=== PATIENT | male | born 1975 | race Caucasian/White ===

== ENCOUNTER → 2021-01-03 11:31 | Outpatient (CLI) | payer OTHER, SELFPAY ==
[2021-01-03 20:24] LABS: SARS-CoV-2 RNA PCR Positive
== END ==
PROVIDERS: PCP Physician Assistant Medical; Visit Provider Physician Assistant Medical
DX: U07.1 COVID-19 (principal)
CPT/HCPCS: C9803; U0003; U0005

== ENCOUNTER 2021-01-10 18:08 | Emergency (ER) | payer OTHER, SELFPAY ==
--- NOTE | 2021-01-10 18:27 | ECG_ITS ---
Measurements Intervals [place] Rate: 74 P: 19 PA: 137 QRS: 24 QRSD: 98 T: 9 QT: 326 QTc: 364 Interpretive Statements SINUS RHYTHM DELAYED PRECORDIAL R/S TRANSITION CONSIDER INFERIOR INFARCT, AGE INDETERMINATE BORDERLINE T WAVE ABNORMALITY- ANTERIOR LEADS ABNORMAL ECG Electronically Signed On 01-10-2021 18:37:07 CDT by Tarik Mcclain D.O.
[2021-01-10 18:35] VITALS: BP 100/68; PULSE 74; RESP 16; TEMP 36.1; O2SAT 96
[2021-01-10 18:51] LABS: Basophils Percent Auto 0.2 % (0.2-1.2); Hematocrit 45.4 % (42.0-52.0); Hemoglobin 15.6 g/dL (14.0-18.0); Immature Granulocyte Absolute 0.01 K/mm3 (0.00-0.031); Immature Granulocyte Percent A 0.2 % (0-0.5); Lymphocytes Percent Auto 16.1 % (18.3-44.2); Mean Corpuscular HGB Conc 34.4 g/dl (32-36); Mean Corpuscular Hemoglobin 30.3 pg (26-34); Mean Corpuscular Volume 88.2 fl (80-100); Mean Platelet Volume 9.5 fl (7.4-10.4); Monocytes Absolute Auto 0.2 K/mm3 (0.1-0.6); Monocytes Percent Auto 4.6 % (2.6-8.5); Neutrophils Absolute Auto 3.4 K/mm3 (1.3-6.7); Neutrophils Percent Auto 78.9 % (45.5-73.1); Platelet Count Result 142 k/mm3 (150-375); Red Blood Count 5.15 M/mm3 (4.6-6.20); Red Cell Distribution Width 12.3 % (11.5-14.5); White Blood Count 4.4 K/mm3 (4.5-10.0)
[2021-01-10 19:04] LABS: Alanine Aminotransferase 34 U/L (4-50); Albumin Level 3.9 g/dL (3.5-5.1); Alkaline Phosphatase 88 U/L (38-126); Anion Gap 6 mmol/L (8-16); Aspartate Amino Transferase 37 U/L (17-59); Bilirubin,Total 0.8 mg/dL (0.2-1.3); Blood Urea Nitrogen 14 mg/dL (9-20); Calcium 8.3 mg/dL (8.4-10.2); Carbon Dioxide 33 mmol/L (22-30); Chloride 99 mmol/L (98-107); Estimated CRCL calculation 122 ml/min; Estimated Glomerular Filt Rate > 60; Glucose 134 mg/dL (75-110); Potassium 4.2 mmol/L (3.4-5.0); Sodium 138 mmol/L (137-145)
[2021-01-10 19:10] LABS: D Dimer 0.64 ug/mL (<0.48)
--- NOTE | 2021-01-10 21:29 | PC.NURSE ---
Pt to the desk stating he has been waiting 3.5 hours and just wants to go home. Pt left the department.
== END 2021-01-10 21:29 | disposition left against medical advice (07) ==
LOC: ANHED 01-26 13:42
PROVIDERS: Emergency Provider Family Medicine; PCP Family Medicine
DX: R06.02 Shortness of breath (principal)
CPT/HCPCS: 36415; 80053; 85025; 85380; 93005; 99199

== ENCOUNTER 2021-01-12 11:23 | Inpatient (IN) | payer OTHER, SELFPAY ==
[2021-01-12] VITALS (40 sets, daily range): BP systolic 101–135; BP diastolic 52–86; PULSE 63–90; RESP 18–35; TEMP 36–37.4; O2SAT 89–96; BMI 34.4
--- NOTE | ~2021-01-12 | CT_ITS ---
EXAMINATION: CTA chest PE protocol DATE: 01/12/2021 13:56 CDT INDICATION: Chest pain and shortness of breath TECHNIQUE: Computed tomographic angiography (CTA) of the chest was performed with 100 mL Omnipaque-35 0 intravenous contrast. The dose-length product was 926.89 mGy-cm. Maximum intensity projection 3D-re constructions of the aorta and other arteries were constructed by the technologist on a separate work station. Automated exposure control and iterative reconstruction technique were employed. COMPARISON: None. FINDINGS: Evaluation of peripheral pulmonary arteries limited by motion artifact and contrast bolus t iming. No central pulmonary embolism. Cardiomegaly. No significant pleural or pericardial effusion. N o evidence for aortic aneurysm or dissection. There is mediastinal lipomatosis. There are calcified m ediastinal and right hilar lymph nodes, consistent with chronic granulomatous disease. There is patch y bilateral airspace disease, compatible with pneumonia. IMPRESSION: 1. Extensive patchy bilateral airspace consolidation, consistent with pneumonia. 2: No large central pulmonary embolism. Evaluation of peripheral pulmonary arteries limited. Reviewed, dictated and finalized at location B. IMPRESSION: 1. Extensive patchy bilateral airspace consolidation, consistent with pneumonia . 2: No large central pulmonary embolism. Evaluation of peripheral pulmonary art eries limited.
[2021-01-12 12:47] LABS: Hematocrit 43.1 % (42.0-52.0); Immature Granulocyte Absolute 0.01 K/mm3 (0.00-0.031); Immature Granulocyte Percent A 0.2 % (0-0.5); Immature Platelet Fraction Pct 3.5 % (0.9-11.2); Lymphocytes Percent Auto 9.5 % (18.3-44.2); Mean Corpuscular HGB Conc 34.8 g/dl (32-36); Mean Corpuscular Hemoglobin 30.5 pg (26-34); Mean Corpuscular Volume 87.8 fl (80-100); Mean Platelet Volume 10.4 fl (7.4-10.4); Monocytes Absolute Auto 0.2 K/mm3 (0.1-0.6); Neutrophils Absolute Auto 4.6 K/mm3 (1.3-6.7); Neutrophils Percent Auto 86.3 % (45.5-73.1); Platelet Count Result 165 k/mm3 (150-375); Red Blood Count 4.91 M/mm3 (4.6-6.20); Red Cell Distribution Width 12.3 % (11.5-14.5); White Blood Count 5.3 K/mm3 (4.5-10.0)
--- NOTE | 2021-01-12 12:58 | ED.SOB ---
HPI - SOB/Dyspnea General Chief Complaint: Shortness of Breath/Dyspnea Stated Complaint: can't breathe, lethargic Time Seen by Provider: 01/12/21 11:26 History of Present Illness HPI Narrative: Patient is a 45-year-old male who presents to the ER with shortness of breath. Patient was diagnosed with Covid on 01/03/2021. Reports he been feeling sick for several days before then. Reports 3 days ago he began having increased shortness of breath and some central chest discomfort as well. He came to the ER to be evaluated and had blood drawn while in triage and then sat in the waiting room. Due to long wait times patient left without being seen by a provider. Patient has had persistent shortness of breath at home and his oxygen levels have been dropping into the 80s while he wears a pulse oximeter. He has persistent fevers and chills and cough. He is found no alleviating factors for his symptoms of fatigue or shortness of breath. He has not been on any medications at home. Patient reports a fever of 101 ?F this morning. Related Data Allergies Allergy/AdvReac Type Severity Reaction Status Date / Time No Known Allergies Allergy Verified 01/12/21 11:32 Review of Systems Review of Systems: All systems reviewed & are unremarkable except as noted in HPI and below Constitutional: Constitutional: Reports chills, Reports fatigue, Reports fever(s) and Reports weakness ENT: Denies nasal congestion and Denies sore throat Cardiovascular: Cardiovascular: Reports chest pain, Denies rapid heart rate and Denies radiating jaw, neck or arm pain Respiratory: Respiratory: Reports cough, Reports dyspnea and Denies wheezing Gastrointestinal: Gastrointestinal: Denies abdominal pain, Denies nausea and Denies vomiting PMFSH Past Medical History Medical History (Updated 01/12/21 @ 16:23 by Nura Onofre MD) Current smoker Obstructive apnea Surgical History Surgical History (Updated 01/12/21 @ 12:59 by Nura Onofre MD) No pertinent past surgical history Family History Family History (System 08/26/20 @ 08:21 by Pao Beck) Grandparent Family history of coronary artery disease Social History Social History (System 08/26/20 @ 08:21 by Pao Beck) Smoking status: Former smoker Exam Narrative: Exam Narrative: GENERAL: ill-appearing, well-nourished, and in no acute distress. HEAD: Normocephalic, atraumatic. CHEST: Clear to auscultation. No respiratory distress. HEART: Regular rate and rhythm. Normal peripheral pulses. ABDOMEN: Soft, nontender, nondistended. EXTREMITIES: Normal range of motion. No edema. SKIN: Warm, dry, no rash. NEURO: Alert and oriented x3. PSYCH: Normal mood and affect. Course Course Emergency Course: Admit to hospitalist service for Covid pneumonia with hypoxia. Requiring supplemental oxygen at this time. Decadron ordered. Vital Signs Vital signs: Vital Signs Temperature 99.1 F 01/12/21 11:27 Pulse Rate 85 01/12/21 11:27 Respiratory Rate 24 H 01/12/21 11:27 Pulse Oximetry 89 L 01/12/21 11:27 Temperature 99.1 F 01/12/21 11:27 Pulse Rate 78 01/12/21 15:00 Respiratory Rate 27 H 01/12/21 15:00 Blood Pressure 132/84 01/12/21 13:16 Pulse Oximetry 96 01/12/21 11:27 MDM - SOB/Dyspnea Lab Data Result diagrams: 01/12/21 12:30 01/12/21 13:07 Labs: Lab Results 01/12/21 01/12/21 01/12/21 Range/Units 12:30 13:07 13:07 WBC 5.3 (4.5-10.0) K/mm3 RBC 4.91 (4.6-6.20) M/mm3 Hgb 15.0 (14.0-18.0) g/dL Hct 43.1 (42.0-52.0) % MCV 87.8 (80-100) fl MCH 30.5 (26-34) pg MCHC 34.8 (32-36) g/dl RDW 12.3 (11.5-14.5) % Plt Count 165 (150-375) k/mm3 MPV 10.4 (7.4-10.4) fl Immature Gran % (Auto) 0.2 (0-0.5) % Neut % (Auto) 86.3 H (45.5-73.1) % Lymph % (Auto) 9.5 L (18.3-44.2) % Swisher % (Auto) 4.0 (2.6-8.5) % Eos % (Auto) 0.0 (0-4.4) % Baso % (Auto)
[2021-01-12 13:28] LABS: INR 0.9; Prothrombin Time 12.9 Seconds (11.1-14.7)
[2021-01-12 13:30] LABS: Anion Gap 4 mmol/L (8-16); Blood Urea Nitrogen 11 mg/dL (9-20); Calcium 7.9 mg/dL (8.4-10.2); Carbon Dioxide 30 mmol/L (22-30); Chloride 101 mmol/L (98-107); Estimated CRCL calculation 136 ml/min; Estimated Glomerular Filt Rate > 60; Glucose 105 mg/dL (75-110); Potassium 4.3 mmol/L (3.4-5.0); Sodium 135 mmol/L (137-145)
[2021-01-12 13:31] LABS: D Dimer 0.82 ug/mL (<0.48)
[2021-01-12 13:37] LABS: Troponin I 0.014 ng/mL (0.000-0.034)
[2021-01-12 13:40] LABS: Erythrocyte Sedimentation Rate 27 mm/hr (0-20)
[2021-01-12] MEDS: DEXAMETHASONE SOD PHOS INJ 4 MG/ML VIAL 6 MG IV PUSH (15:00)
--- NOTE | 2021-01-12 17:18 | PC.NURSE ---
Patient's updated on plan of care.
--- NOTE | 2021-01-12 17:39 | ADMGEN ---
This patient, Daniele Warren, was admitted to [facility] Surg Room 331-01 @ 4765 . Patient/family oriented to hospital policies and general routines including ID bracelet, bed and alarms, visiting hours, pain management, procedures, bathroom and other care routines, personal items, smoking policy, room service/diet, and visiting hours. Information on how to activate the Rapid Response Team has been discussed. Patient/Family are encouraged to report perceived risks to care and to ask questions if they do not understand what they are told or what they should do.
--- NOTE | 2021-01-12 18:46 | PCRCNOTE ---
Pt states he does wear a CPAP at home, but he does not want to use our machine while here.
--- NOTE | 2021-01-12 19:18 | PM.IMHP ---
H&P: HPI History of Present Illness Date/Time: 01/12/21 19:18 this is a 45-year-old male patient who has a history of COVID 19 pneumonia. The patient was diagnosed with COVID-19 approximately 8 days ago. His tested positive 1st. The patient stated that his symptoms started about 2 days prior to that. Initially he started with a runny nose and a just got progressively worse. The patient has body aches and still continues to have a fever. The patient said it just progressively got worse. The patient was short of breath that worsened approximately 3 days ago. The patient was in the waiting room this past Sunday in the emergency room but left after 3 hours because he was not seen. The patient called his primary care doctor who instructed him to come back to the emergency room. Patient's oxygen levels could dropping into the 80s when checking his pulse ox at home with the pulse oximeter. The patient has been taking Motrin. He reported that his fever was 101 this morning. Patient was complaining of having some discomfort with deep inspiration. CTA was read as extensive patchy bilateral airspace consolidation consistent with pneumonia. No large central pulmonary embolism. Evaluation peripherally pulmonary arteries limited. The patient was started on IV Decadron. The patient is being admitted to inpatient services for 01/12/2021 date of service. Chief Complaint: Shortness of breath Review of Systems Review of Systems: Narrative: See HPI All systems reviewed & are unremarkable except as noted in HPI and below Constitutional: Constitutional: Reports as per HPI and Reports no additional constitutional complaints Eyes: Eyes: Reports as per HPI and Reports no additional eye complaints ENT: Reports system reviewed and no additional complaints, except as documented and Reports Normal hearing present Cardiovascular: Cardiovascular: Reports no additional cardiovascular complaints Respiratory: Respiratory: Reports no additional respiratory complaints and Reports no additional respiratory complaints Gastrointestinal: Gastrointestinal: Reports as per HPI and Reports no additional gastrointestinal complaints Musculoskeletal: Musculoskeletal: Reports no additional musculoskeletal complaints Integumentary/Breasts: Skin/Breast: Reports system reviewed and no additional complaints, except as docu and Reports as per HPI Neurologic: Reports system reviewed and no additional complaints, except as documented, Reports as per HPI and Reports Normal hearing present Psychiatric: Psychiatric: Reports no additional psychiatric complaints and Reports as per HPI Endocrine: Endocrine: Reports no additional endocrine complaints Hematologic/Lymphatic: Hematologic/Lymphatic: Reports no additional hematologic/lymphatic complaints Allergic/Immunologic: Allergic/Immunologic: Reports no additional allergic/immunologic complaints PMFSH Past Medical History Medical History Anxiety Current smoker Obstructive apnea Surgical History Surgical History (Updated 01/12/21 @ 19:26 by Annita Ley NP) History of appendectomy History of back surgery No pertinent past surgical history Family History Family History Grandparent Family history of coronary artery disease Father Malignant neoplasm of prostate Patient's father is Social History Social History (Updated 01/12/21 @ 19:27 by Annita Ley NP) Social History: The patient stated that he used to smoke. The patient is and lives with his and has 1 child. 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 Patient does not use any alcohol marijuana or illicit drugs. 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
[2021-01-12 19:52] LABS: Alanine Aminotransferase 34 U/L (4-50); Estimated CRCL calculation 137 ml/min; Estimated Glomerular Filt Rate > 60
[2021-01-12] MEDS: REMDESIVIR 200 MG/NS 250 ML 200 MG/250 ML BAG 250 MG IVPB (21:36)
[2021-01-13] VITALS (9 sets, daily range): BP systolic 127–138; BP diastolic 70–77; PULSE 65–78; RESP 18–20; TEMP 36.1–36.6; O2SAT 90–93
--- NOTE | 2021-01-13 00:56 | PCRCNOTE ---
Window of time for administration has passed. See next scheduled administration.
[2021-01-13] MEDS: ALBUTEROL SULFATE (*SP) INHALER 2 PUFF INHALATION ×3 (03:36→14:35)
[2021-01-13 07:18] LABS: Basophils Percent Auto 0.2 % (0.2-1.2); Hemoglobin 13.8 g/dL (14.0-18.0); Immature Granulocyte Absolute 0.02 K/mm3 (0.00-0.031); Immature Granulocyte Percent A 0.3 % (0-0.5); Lymphocytes Absolute Auto 0.48 K/mm3 (0.9-3.2); Lymphocytes Percent Auto 7.7 % (18.3-44.2); Mean Corpuscular HGB Conc 33.7 g/dl (32-36); Mean Corpuscular Hemoglobin 29.3 pg (26-34); Mean Platelet Volume 9.9 fl (7.4-10.4); Monocytes Absolute Auto 0.3 K/mm3 (0.1-0.6); Monocytes Percent Auto 4.6 % (2.6-8.5); Neutrophils Absolute Auto 5.5 K/mm3 (1.3-6.7); Neutrophils Percent Auto 87.2 % (45.5-73.1); Platelet Count Result 167 k/mm3 (150-375); Red Blood Count 4.71 M/mm3 (4.6-6.20); Red Cell Distribution Width 12.1 % (11.5-14.5); White Blood Count 6.3 K/mm3 (4.5-10.0)
[2021-01-13 07:31] LABS: Alanine Aminotransferase 38 U/L (4-50); Albumin Level 3.7 g/dL (3.5-5.1); Alkaline Phosphatase 83 U/L (38-126); Anion Gap 4 mmol/L (8-16); Aspartate Amino Transferase 43 U/L (17-59); Bilirubin,Total 0.7 mg/dL (0.2-1.3); Blood Urea Nitrogen 13 mg/dL (9-20); Calcium 8.4 mg/dL (8.4-10.2); Carbon Dioxide 34 mmol/L (22-30); Chloride 101 mmol/L (98-107); Estimated CRCL calculation 155 ml/min; Estimated Glomerular Filt Rate > 60; Glucose 129 mg/dL (75-110); Magnesium 2.1 mg/dL (1.6-2.3); Potassium 4.2 mmol/L (3.4-5.0); Sodium 139 mmol/L (137-145)
[2021-01-13 07:37] LABS: Lactic Acid Reflex 1.1 mmol/L (0.7-2.1)
[2021-01-13 08:11] LABS: Thyroid Stimulating Hormone Reflex 0.928 uIU/mL (0.465-4.68)
[2021-01-13] MEDS: DEXAMETHASONE SOD PHOS INJ 4 MG/ML VIAL 6 MG IV PUSH (09:02)
[2021-01-13] MEDS: ENOXAPARIN 40 MG/0.4 ML SYRINGE SUB-Q ×2 (09:03→20:52)
--- NOTE | 2021-01-13 09:14 | PC.NURSE ---
call to pharmacy for missing PO meds
[2021-01-13] MEDS: PARoxetine 20 MG TABLET 40 MG BY MOUTH (10:12)
[2021-01-13] MEDS: ZINC SULFATE 220 MG CAPSULE PO (10:12)
[2021-01-13] MEDS: ASCORBIC ACID 500 MG TABLET PO (14:35)
[2021-01-13] MEDS: CHOLECALCIFEROL 1,000 UNITS TABLET 1000 UNITS PO (14:35)
--- NOTE | 2021-01-13 15:54 | PM.IMPN ---
Progress Note: A&P Assessment and Plan (1) Pneumonia due to 2019-nCoV: Code(s): U07.1 - COVID-19; J12.82 - Pneumonia due to coronavirus disease 2019 Status: Acute Assessment and Plan: Patient is on oxygen at 2 L per nasal cannula. May consider home evaluation for oxygen. The patient is on REMdesivir and Decadron. Incentive spirometer, zinc, albuterol inhaler, and Robitussin. 01/13/21 15:54 patient is a 45-year-old male was diagnosed with COVID-19 9 days ago symptoms of progressive getting worse with body ache, fever fatigue shortness of breath, emergency department patient was started on dexamethasone /10 and remdesivr 1/ patient still complains body ache fever and shortness of breath, discussed with the patient to start convalescent plasma and he has agreed, will start the patient on vitamin-C vitamin-D and zinc, continue to monitor will have a PT OT evaluate the patient and further recommendation to follow, currently patient has no fever is requiring 1 L of oxygen nasal cannula. (2) Anxiety: Code(s): F41.9 - Anxiety disorder, unspecified Status: Chronic Assessment and Plan: Continue with paroxetine (3) Obstructive sleep apnea on CPAP: Code(s): G47.33 - Obstructive sleep apnea (adult) (pediatric); Z99.89 - Dependence on other enabling machines and devices Status: Acute Assessment and Plan: Home CPAP (4) Chronic anxiety: Code(s): F41.9 - Anxiety disorder, unspecified Status: Acute Assessment and Plan: Paroxetine Subjective Date/time seen: 01/13/21 15:54 patient is a 45-year-old male was diagnosed with COVID-19 9 days ago symptoms of progressive getting worse with body ache, fever fatigue shortness of breath, emergency department patient was started on dexamethasone /10 and remdesivr /5 patient still complains body ache fever and shortness of breath, discussed with the patient to start convalescent plasma and he has agreed, will start the patient on vitamin-C vitamin-D and zinc, continue to monitor will have a PT OT evaluate the patient and further recommendation to follow, currently patient has no fever is requiring 1 L of oxygen nasal cannula. Review of Systems Review of Systems: All systems reviewed & are unremarkable except as noted in HPI and below Exam Narrative: Exam Narrative: Moderately obese Patient is comfortable, NAD HEENT: eyes are clear and none icteric LUNGS: Normal respiratory effort ABD: Moderately distended Lower extremities: no edema SKIN: nonjaundiced Neuro: grossly intact normal speech. Objective Data Vital Signs Vital Signs: Vital Signs - 24 hr 01/12/21 16:07 01/12/21 16:15 01/12/21 16:24 Temperature Pulse Rate 81 70 75 Respiratory Rate 20 30 H 27 H Blood Pressure 121/78 Pulse Oximetry 01/12/21 16:48 01/12/21 17:00 01/12/21 17:01 Temperature Pulse Rate 76 75 75 Respiratory Rate 25 H 26 H 25 H Blood Pressure 135/81 Pulse Oximetry 01/12/21 17:15 01/12/21 17:16 01/12/21 17:29 Temperature Pulse Rate 76 78 74 Respiratory Rate 28 H 27 H 20 Blood Pressure 127/73 127/73 Pulse Oximetry 96 01/12/21 18:26 01/12/21 20:00 01/12/21 21:38 Temperature 99.4 F 97.8 F 97.0 F L Pulse Rate 73 66 66 Respiratory Rate 20 20 20 Blood Pressure 125/74 101/52 L 101/52 L Pulse Oximetry 93 96 93 01/12/21 23:47 01/13/21 03:37 01/13/21 03:47 Temperature 96.8 F L 97.9 F Pulse Rate 63 72 Respiratory Rate 20 18 Blood Pressure 129/75 127/70 Pulse Oximetry 93 93 91 01/13/21 04:55 01/13/21 06:22 01/13/21 08:00 Temperature 97.9 F 97.6 F Pulse Rate 72 72 Respiratory Rate 20 18 Blood Pressure 127/70 128/77 Pulse Oximetry 91 91 92 01/13/21 08:30 01/13/21 12:00 Temperature 97.4 F L Pulse Rate 72 78 Respiratory Rate 20 18 Blood Pressure 128/70 Pulse Oximetry 91 93 Intake/Output Intake/Output: Intake & Output 01/10/21 01/11/21 01/12/21 01/13/21 23:59 23:59 23:59
[2021-01-13] MEDS: REMDESIVIR 100 MG/NS 250 ML 100 MG/250 ML BAG 250 MG IVPB (20:51)
[2021-01-14] VITALS (16 sets, daily range): BP systolic 118–139; BP diastolic 64–74; PULSE 62–81; RESP 16–18; TEMP 35.1–36.6; O2SAT 86–95
[2021-01-14 06:36] LABS: Alanine Aminotransferase 41 U/L (4-50); Estimated CRCL calculation 137 ml/min; Estimated Glomerular Filt Rate > 60
[2021-01-14] MEDS: ALBUTEROL SULFATE (*SP) INHALER 2 PUFF INHALATION ×3 (09:10→20:20)
[2021-01-14] MEDS: ENOXAPARIN 40 MG/0.4 ML SYRINGE SUB-Q ×2 (09:11→20:21)
[2021-01-14] MEDS: ZINC SULFATE 220 MG CAPSULE PO (09:11)
[2021-01-14] MEDS: PARoxetine 20 MG TABLET 40 MG BY MOUTH (09:11)
[2021-01-14] MEDS: DEXAMETHASONE SOD PHOS INJ 4 MG/ML VIAL 6 MG IV PUSH (09:11)
[2021-01-14] MEDS: ASCORBIC ACID 500 MG TABLET PO (09:12)
[2021-01-14] MEDS: CHOLECALCIFEROL 1,000 UNITS TABLET 1000 UNITS PO (09:12)
[2021-01-14] MEDS: SODIUM CHLORIDE 0.9% IV 250 ML 30 ML IV CONT (11:41)
--- NOTE | 2021-01-14 13:55 | PM.IMPN ---
Progress Note: A&P Assessment and Plan (1) Pneumonia due to 2019-nCoV: Code(s): U07.1 - COVID-19; J12.82 - Pneumonia due to coronavirus disease 2019 Status: Acute Assessment and Plan: Patient is on oxygen at 2 L per nasal cannula. May consider home evaluation for oxygen. The patient is on REMdesivir and Decadron. Incentive spirometer, zinc, albuterol inhaler, and Robitussin. 01/14/21 13:55 01/13patient is a 45-year-old male was diagnosed with COVID-19 9 days ago symptoms of progressive getting worse with body ache, fever fatigue shortness of breath, emergency department patient was started on dexamethasone 1/10 and remdesivr 1/5 patient still complains body ache fever and shortness of breath, discussed with the patient to start convalescent plasma and he has agreed, will start the patient on vitamin-C vitamin-D and zinc, continue to monitor will have a PT OT evaluate the patient and further recommendation to follow, currently patient has no fever is requiring 1 L of oxygen nasal cannula. 01/14 today patient states feeling better not as short of breath patient just received convalescent plasma , on dexamethasone 2/10 and remdesivr 2/5 patient, patient body ache is better, patient has been not had any fever while in the hospital, his only requiring 1-2 L of oxygen per nasal cannula, instructed the patient to ambulate, will continue to monitor if remains clinically stable may discharge the patient on SundayJanuary 17 as patient will complete 5 day course of remdesivir. (2) Anxiety: Code(s): F41.9 - Anxiety disorder, unspecified Status: Chronic Assessment and Plan: Continue with paroxetine (3) Obstructive sleep apnea on CPAP: Code(s): G47.33 - Obstructive sleep apnea (adult) (pediatric); Z99.89 - Dependence on other enabling machines and devices Status: Acute Assessment and Plan: Home CPAP (4) Chronic anxiety: Code(s): F41.9 - Anxiety disorder, unspecified Status: Acute Assessment and Plan: Paroxetine Subjective Date/time seen: 01/14/21 13:55 01/13patient is a 45-year-old male was diagnosed with COVID-19 9 days ago symptoms of progressive getting worse with body ache, fever fatigue shortness of breath, emergency department patient was started on dexamethasone 10/24 and remdesivr 10/19 patient still complains body ache fever and shortness of breath, discussed with the patient to start convalescent plasma and he has agreed, will start the patient on vitamin-C vitamin-D and zinc, continue to monitor will have a PT OT evaluate the patient and further recommendation to follow, currently patient has no fever is requiring 1 L of oxygen nasal cannula. 01/14 today patient states feeling better not as short of breath patient just received convalescent plasma , on dexamethasone 11/24 and remdesivr 11/19 patient, patient body ache is better, patient has been not had any fever while in the hospital, his only requiring 1-2 L of oxygen per nasal cannula, instructed the patient to ambulate, will continue to monitor if remains clinically stable may discharge the patient on SundayJanuary 17 as patient will complete 5 day course of remdesivir. Review of Systems Review of Systems: All systems reviewed & are unremarkable except as noted in HPI and below Exam Narrative: Exam Narrative: Moderately obese Patient is comfortable, NAD HEENT: eyes are clear and none icteric LUNGS: Normal respiratory effort ABD: Moderately distended Lower extremities: no edema SKIN: nonjaundiced Neuro: grossly intact normal speech. Objective Data Vital Signs Vital Signs: Vital Signs - 24 hr 01/13/21 16:00 01/13/21 20:00 01/14/21 00:00 Temperature 97.0 F L 97.2 F L 97.0 F L Pulse Rate 76 65 65 Respiratory Rate 18 20 18 Blood Pressure 138/73 130/76 121/69 Pulse Oximetry 90 93 91 01/14/21 04:00 01/14/21 07:50 01/14/21 07:51 Temperature 97.5 F L Pulse Rate 67 Respiratory Rate 18
[2021-01-14] MEDS: REMDESIVIR 100 MG/NS 250 ML 100 MG/250 ML BAG 250 MG IVPB (20:19)
[2021-01-15] VITALS (9 sets, daily range): BP systolic 113–129; BP diastolic 64–81; PULSE 52–68; RESP 16–19; TEMP 36.3–37; O2SAT 95–98
[2021-01-15 06:51] LABS: Alanine Aminotransferase 39 U/L (4-50); Albumin Level 3.4 g/dL (3.5-5.1); Alkaline Phosphatase 68 U/L (38-126); Anion Gap 3 mmol/L (8-16); Aspartate Amino Transferase 27 U/L (17-59); Bilirubin,Total 0.5 mg/dL (0.2-1.3); Blood Urea Nitrogen 14 mg/dL (9-20); CRP 2.8 mg/dL (<1.0); Calcium 8.5 mg/dL (8.4-10.2); Carbon Dioxide 34 mmol/L (22-30); Chloride 104 mmol/L (98-107); Estimated CRCL calculation 137 ml/min; Estimated Glomerular Filt Rate > 60; Glucose 108 mg/dL (75-110); Potassium 4.6 mmol/L (3.4-5.0); Sodium 141 mmol/L (137-145)
[2021-01-15] MEDS: ZINC SULFATE 220 MG CAPSULE PO (08:18)
[2021-01-15] MEDS: PARoxetine 20 MG TABLET 40 MG BY MOUTH (08:18)
[2021-01-15] MEDS: ENOXAPARIN 40 MG/0.4 ML SYRINGE SUB-Q ×2 (08:19→21:20)
[2021-01-15] MEDS: DEXAMETHASONE SOD PHOS INJ 4 MG/ML VIAL 6 MG IV PUSH (08:19)
[2021-01-15] MEDS: ASCORBIC ACID 500 MG TABLET PO (08:19)
[2021-01-15] MEDS: CHOLECALCIFEROL 1,000 UNITS TABLET 1000 UNITS PO (08:19)
[2021-01-15] MEDS: ALBUTEROL SULFATE (*SP) INHALER 2 PUFF INHALATION ×3 (08:20→21:20)
--- NOTE | 2021-01-15 19:37 | PM.IMPN ---
Progress Note: A&P Assessment and Plan (1) Pneumonia due to 2019-nCoV: Code(s): U07.1 - COVID-19; J12.82 - Pneumonia due to coronavirus disease 2019 Status: Acute Assessment and Plan: Patient is on oxygen at 2 L per nasal cannula. May consider home evaluation for oxygen. The patient is on REMdesivir and Decadron. Incentive spirometer, zinc, albuterol inhaler, and Robitussin. 01/15/21 19:37 Patient is on oxygen at 2 L per nasal cannula. May consider home evaluation for oxygen. The patient is on REMdesivir and Decadron. Incentive spirometer, zinc, albuterol inhaler, and Robitussin. 01/14/21 13:55 01/13patient is a 45-year-old male was diagnosed with COVID-19 9 days ago symptoms of progressive getting worse with body ache, fever fatigue shortness of breath, emergency department patient was started on dexamethasone /10 and remdesivr 1/5 patient still complains body ache fever and shortness of breath, discussed with the patient to start convalescent plasma and he has agreed, will start the patient on vitamin-C vitamin-D and zinc, continue to monitor will have a PT OT evaluate the patient and further recommendation to follow, currently patient has no fever is requiring 1 L of oxygen nasal cannula. 01/14 today patient states feeling better not as short of breath patient just received convalescent plasma , on dexamethasone 2/10 and remdesivr 2/5 patient, patient body ache is better, patient has been not had any fever while in the hospital, his only requiring 1-2 L of oxygen per nasal cannula, instructed the patient to ambulate, will continue to monitor if remains clinically stable may discharge the patient on SundayJanuary 17 as patient will complete 5 day course of remdesivir. 01/15 today patient states feeling better not as short of breath patient just received convalescent plasma 01/14 , on dexamethasone 310 and remdesivr / patient, patient body ache is better, patient has been not had any fever while in the hospital, his only requiring 1-2 L of oxygen per nasal cannula, he able to ambulate in the room without getting shortness of breath, instructed the patient to ambulate, will continue to monitor if remains clinically stable may discharge the patient on SundayJanuary 17 as patient will complete 5 day course of remdesivir. (2) Anxiety: Code(s): F41.9 - Anxiety disorder, unspecified Status: Chronic Assessment and Plan: Continue with paroxetine (3) Obstructive sleep apnea on CPAP: Code(s): G47.33 - Obstructive sleep apnea (adult) (pediatric); Z99.89 - Dependence on other enabling machines and devices Status: Acute Assessment and Plan: Home CPAP (4) Chronic anxiety: Code(s): F41.9 - Anxiety disorder, unspecified Status: Acute Assessment and Plan: Paroxetine Subjective Date/time seen: 01/15/21 19:37 Patient is on oxygen at 2 L per nasal cannula. May consider home evaluation for oxygen. The patient is on REMdesivir and Decadron. Incentive spirometer, zinc, albuterol inhaler, and Robitussin. 01/14/21 13:55 01/13patient is a 45-year-old male was diagnosed with COVID-19 9 days ago symptoms of progressive getting worse with body ache, fever fatigue shortness of breath, emergency department patient was started on dexamethasone 1/10 and remdesivr 1/5 patient still complains body ache fever and shortness of breath, discussed with the patient to start convalescent plasma and he has agreed, will start the patient on vitamin-C vitamin-D and zinc, continue to monitor will have a PT OT evaluate the patient and further recommendation to follow, currently patient has no fever is requiring 1 L of oxygen nasal cannula. 01/14 today patient states feeling better not as short of breath patient just received convalescent plasma , on dexamethasone 2/10 and remdesivr 2/5 patient, patient body ache is better, patient has been not had any fever while in the hospital, his only requiring 1-2 L of
[2021-01-15] MEDS: REMDESIVIR 100 MG/NS 250 ML 100 MG/250 ML BAG 250 MG IVPB (21:20)
[2021-01-16] VITALS (9 sets, daily range): BP systolic 116–136; BP diastolic 73–83; PULSE 53–62; RESP 16–20; TEMP 36.2–36.6; O2SAT 93–97
[2021-01-16 06:35] LABS: Alanine Aminotransferase 54 U/L (4-50); Albumin Level 3.2 g/dL (3.5-5.1); Alkaline Phosphatase 62 U/L (38-126); Anion Gap 5 mmol/L (8-16); Aspartate Amino Transferase 38 U/L (17-59); Bilirubin,Total 0.5 mg/dL (0.2-1.3); Blood Urea Nitrogen 15 mg/dL (9-20); CRP 1.6 mg/dL (<1.0); Calcium 8.3 mg/dL (8.4-10.2); Carbon Dioxide 30 mmol/L (22-30); Chloride 106 mmol/L (98-107); Estimated CRCL calculation 155 ml/min; Estimated Glomerular Filt Rate > 60; Glucose 101 mg/dL (75-110); Potassium 3.9 mmol/L (3.4-5.0); Sodium 141 mmol/L (137-145)
[2021-01-16] MEDS: CHOLECALCIFEROL 1,000 UNITS TABLET 1000 UNITS PO (07:58)
[2021-01-16] MEDS: ASCORBIC ACID 500 MG TABLET PO (07:58)
[2021-01-16] MEDS: ZINC SULFATE 220 MG CAPSULE PO (07:58)
[2021-01-16] MEDS: ENOXAPARIN 40 MG/0.4 ML SYRINGE SUB-Q ×2 (07:58→21:46)
[2021-01-16] MEDS: DEXAMETHASONE SOD PHOS INJ 4 MG/ML VIAL 6 MG IV PUSH (07:59)
[2021-01-16] MEDS: ALBUTEROL SULFATE (*SP) INHALER 2 PUFF INHALATION ×3 (07:59→21:46)
[2021-01-16] MEDS: PARoxetine 20 MG TABLET 40 MG BY MOUTH (07:59)
--- NOTE | 2021-01-16 10:01 | PM.IMPN ---
Progress Note: A&P Assessment and Plan (1) Pneumonia due to 2019-nCoV: Code(s): U07.1 - COVID-19; J12.82 - Pneumonia due to coronavirus disease 2019 Status: Acute Assessment and Plan: Patient is on oxygen at 2 L per nasal cannula. May consider home evaluation for oxygen. The patient is on REMdesivir and Decadron. Incentive spirometer, zinc, albuterol inhaler, and Robitussin. 01/16/21 10:01 Patient is on oxygen at 2 L per nasal cannula. May consider home evaluation for oxygen. The patient is on REMdesivir and Decadron. Incentive spirometer, zinc, albuterol inhaler, and Robitussin. 01/13patient is a 45-year-old male was diagnosed with COVID-19 9 days ago symptoms of progressive getting worse with body ache, fever fatigue shortness of breath, emergency department patient was started on dexamethasone 1/10 and remdesivr 1/5 patient still complains body ache fever and shortness of breath, discussed with the patient to start convalescent plasma and he has agreed, will start the patient on vitamin-C vitamin-D and zinc, continue to monitor will have a PT OT evaluate the patient and further recommendation to follow, currently patient has no fever is requiring 1 L of oxygen nasal cannula. 01/14 today patient states feeling better not as short of breath patient just received convalescent plasma , on dexamethasone 2/10 and remdesivr 2/5 patient, patient body ache is better, patient has been not had any fever while in the hospital, his only requiring 1-2 L of oxygen per nasal cannula, instructed the patient to ambulate, will continue to monitor if remains clinically stable may discharge the patient on SundayJanuary 17 as patient will complete 5 day course of remdesivir. 01/15 today patient states feeling better not as short of breath patient received convalescent plasma 01/14 , on dexamethasone 310 and remdesivr / patient, patient body ache is better, patient has been not had any fever while in the hospital, his only requiring 1-2 L of oxygen per nasal cannula, he able to ambulate in the room without getting shortness of breath, instructed the patient to ambulate, will continue to monitor if remains clinically stable may discharge the patient on SundayJanuary 17 as patient will complete 5 day course of remdesivir. 01/16 today patient states feeling better not as short of breath patient received convalescent plasma 01/14 , on dexamethasone 01/22 and remdesivr 01/17 patient, patient will complete 5 day course of rendesivir tomorrow, patient body aches are better, patient has not had any fever while in the hospital, his only requiring 1-2 L of oxygen per nasal cannula, spoke with his nurse Aiden and patient is taken off isolation as it has been 10 days since he was diagnosed with Covid1-19 he is able to ambulate in the room without getting shortness of breath, instructed the patient to ambulate, will continue to monitor if remains clinically stable, will do home Oxygen evaluation tomorrow and may discharge the patient on SundayJanuary 17. (2) Anxiety: Code(s): F41.9 - Anxiety disorder, unspecified Status: Chronic Assessment and Plan: Continue with paroxetine (3) Obstructive sleep apnea on CPAP: Code(s): G47.33 - Obstructive sleep apnea (adult) (pediatric); Z99.89 - Dependence on other enabling machines and devices Status: Acute Assessment and Plan: Home CPAP (4) Chronic anxiety: Code(s): F41.9 - Anxiety disorder, unspecified Status: Acute Assessment and Plan: Paroxetine Subjective Date/time seen: 01/16/21 10:01 Patient is on oxygen at 2 L per nasal cannula. May consider home evaluation for oxygen. The patient is on REMdesivir and Decadron. Incentive spirometer, zinc, albuterol inhaler, and Robitussin. 01/13patient is a 45-year-old male was diagnosed with COVID-19 9 days ago symptoms of progressive getting worse with body ache, fever fatigue shortness of breath, emergency department pat
[2021-01-16] MEDS: REMDESIVIR 100 MG/NS 250 ML 100 MG/250 ML BAG 250 MG IVPB (21:47)
[2021-01-17] MEDS: ALBUTEROL SULFATE (*SP) INHALER 2 PUFF INHALATION ×2 (01:59→08:17)
[2021-01-17 06:00] VITALS: BP 135/83; PULSE 61; RESP 16; TEMP 36.3; O2SAT 97
[2021-01-17 06:15] LABS: Alanine Aminotransferase 83 U/L (4-50); Albumin Level 3.3 g/dL (3.5-5.1); Alkaline Phosphatase 68 U/L (38-126); Anion Gap 2 mmol/L (8-16); Aspartate Amino Transferase 45 U/L (17-59); Bilirubin,Total 0.5 mg/dL (0.2-1.3); Blood Urea Nitrogen 13 mg/dL (9-20); CRP 1.1 mg/dL (<1.0); Calcium 8.5 mg/dL (8.4-10.2); Carbon Dioxide 33 mmol/L (22-30); Chloride 106 mmol/L (98-107); Estimated CRCL calculation 155 ml/min; Estimated Glomerular Filt Rate > 60; Glucose 106 mg/dL (75-110); Potassium 3.9 mmol/L (3.4-5.0); Sodium 141 mmol/L (137-145)
[2021-01-17] MEDS: DEXAMETHASONE SOD PHOS INJ 4 MG/ML VIAL 6 MG IV PUSH (08:16)
[2021-01-17] MEDS: ENOXAPARIN 40 MG/0.4 ML SYRINGE SUB-Q (08:16)
[2021-01-17] MEDS: CHOLECALCIFEROL 1,000 UNITS TABLET 1000 UNITS PO (08:16)
[2021-01-17] MEDS: PARoxetine 20 MG TABLET 40 MG BY MOUTH (08:16)
[2021-01-17] MEDS: ZINC SULFATE 220 MG CAPSULE PO (08:17)
[2021-01-17] MEDS: ASCORBIC ACID 500 MG TABLET PO (08:17)
--- NOTE | 2021-01-17 11:31 | PM.DS ---
DS: Admitting Diagnosis Admitting Diagnosis Admitting Diagnosis: Shortness of breath DS: Discharge Diagnosis Discharge Diagnosis (1) Pneumonia due to 2019-nCoV: Code(s): U07.1 - COVID-19; J12.82 - Pneumonia due to coronavirus disease 2018 Status: Acute Assessment and Plan: Patient is on oxygen at 2 L per nasal cannula. May consider home evaluation for oxygen. The patient is on REMdesivir and Decadron. Incentive spirometer, zinc, albuterol inhaler, and Robitussin. 01/16/21 10:01 Patient is on oxygen at 2 L per nasal cannula. May consider home evaluation for oxygen. The patient is on REMdesivir and Decadron. Incentive spirometer, zinc, albuterol inhaler, and Robitussin. 01/13patient is a 45-year-old male was diagnosed with COVID-19 9 days ago symptoms of progressive getting worse with body ache, fever fatigue shortness of breath, emergency department patient was started on dexamethasone 10 and remdesivr 1/ patient still complains body ache fever and shortness of breath, discussed with the patient to start convalescent plasma and he has agreed, will start the patient on vitamin-C vitamin-D and zinc, continue to monitor will have a PT OT evaluate the patient and further recommendation to follow, currently patient has no fever is requiring 1 L of oxygen nasal cannula. 01/14 today patient states feeling better not as short of breath patient just received convalescent plasma , on dexamethasone 10 and remdesivr 11/19 patient, patient body ache is better, patient has been not had any fever while in the hospital, his only requiring 1-2 L of oxygen per nasal cannula, instructed the patient to ambulate, will continue to monitor if remains clinically stable may discharge the patient on SundayJanuary 17 as patient will complete 5 day course of remdesivir. 01/15 today patient states feeling better not as short of breath patient received convalescent plasma 01/14 , on dexamethasone 10 and remdesivr 12/17 patient, patient body ache is better, patient has been not had any fever while in the hospital, his only requiring 1-2 L of oxygen per nasal cannula, he able to ambulate in the room without getting shortness of breath, instructed the patient to ambulate, will continue to monitor if remains clinically stable may discharge the patient on SundayJanuary 17 as patient will complete 5 day course of remdesivir. 01/16 today patient states feeling better not as short of breath patient received convalescent plasma 01/14 , on dexamethasone 01/22 and remdesivr 01/17 patient, patient will complete 5 day course of rendesivir tomorrow, patient body aches are better, patient has not had any fever while in the hospital, his only requiring 1-2 L of oxygen per nasal cannula, spoke with his nurse Aiden and patient is taken off isolation as it has been 10 days since he was diagnosed with Covid1-19 he is able to ambulate in the room without getting shortness of breath, instructed the patient to ambulate, will continue to monitor if remains clinically stable, will do home Oxygen evaluation tomorrow and may discharge the patient on SundayJanuary 17. (2) Anxiety: Code(s): F41.9 - Anxiety disorder, unspecified Status: Chronic Assessment and Plan: Continue with paroxetine (3) Obstructive sleep apnea on CPAP: Code(s): G47.33 - Obstructive sleep apnea (adult) (pediatric); Z99.89 - Dependence on other enabling machines and devices Status: Acute Assessment and Plan: Home CPAP (4) Chronic anxiety: Code(s): F41.9 - Anxiety disorder, unspecified Status: Acute Assessment and Plan: Paroxetine DS: Summary Hospital Course Reason for hospitalization: this is a 45-year-old male patient who has a history of COVID 19 pneumonia. The patient was diagnosed with COVID-19 approximately 8 days ago. His tested positive 1st. The patient stated that his symptoms started about 2 days prior to that. Initially he started with
== END 2021-01-17 14:10 | disposition home or self-care (01) | DRG 177 ==
LOC: ANHED 16:23 → ANH3MEDSUR 16:27
PROVIDERS: Nurse Practitioner; Admitting Provider Family Medicine; Emergency Provider Emergency Medicine; PCP Family Medicine; Visit Provider Family Medicine
DX: U07.1 COVID-19 (principal); J12.82 Pneumonia due to coronavirus disease 2019; F41.9 Anxiety disorder, unspecified; G47.33 Obstructive sleep apnea (adult) (pediatric); E66.9 Obesity, unspecified; F17.210 Nicotine dependence, cigarettes, uncomplicated; Z68.34 Body mass index [BMI] 34.0-34.9, adult; Z90.49 Acquired absence of other specified parts of digestive tract
CPT/HCPCS: 36415; 36430; 71275; 80048; 80053; 82565; 83605; 83735; 84443; 84460; 84484; 85025; 85055; 85380; 85610; 85652; 85730; 86140; 86900; 86901; 94640; 96374; 99285; A9270; G0378; J1100; J1650; J7050; P9059; Q9967

== ENCOUNTER 2023-09-03 08:44 | Outpatient (CLI) | payer BC, SELFPAY ==
[2023-09-03 18:30] LABS: Alanine Aminotransferase 42 U/L (6-50); Alkaline Phosphatase 77 U/L (38-126); Anion Gap 10 mmol/L (8-16); Aspartate Amino Transferase 30 U/L (17-59); Bilirubin,Total 0.7 mg/dL (0.2-1.3); Blood Urea Nitrogen 21 mg/dL (9-20); Calcium 9.2 mg/dL (8.4-10.2); Carbon Dioxide 27 mmol/L (22-30); Chloride 104 mmol/L (98-107); Cholesterol 195 mg/dL (0-200); Estimated Glomerular Filt Rate > 60; Glucose 97 mg/dL (65-110); HDL Direct 31 mg/dL; Potassium 4.4 mmol/L (3.4-5.0); Sodium 141 mmol/L (137-145); Triglycerides 118 mg/dL (<150)
[2023-09-03 18:41] LABS: LDL Cholesterol Direct 135 mg/dL
[2023-09-03 20:23] LABS: Basophils Percent Auto 0.6 % (0.2-1.2); Eosinophils Absolute Auto 0.1 K/mm3 (0-0.3); Hematocrit 42.9 % (42.0-52.0); Hemoglobin 14.3 g/dL (14.0-18.0); Immature Granulocyte Absolute 0.02 K/mm3 (0.00-0.031); Immature Granulocyte Percent A 0.4 % (0-0.5); Lymphocytes Absolute Auto 1.61 K/mm3 (0.9-3.2); Lymphocytes Percent Auto 29.6 % (18.3-44.2); Mean Corpuscular HGB Conc 33.3 g/dl (32-36); Mean Corpuscular Hemoglobin 30.2 pg (26-34); Mean Corpuscular Volume 90.5 fl (80-100); Mean Platelet Volume 10.1 fl (7.4-10.4); Monocytes Absolute Auto 0.4 K/mm3 (0.1-0.6); Monocytes Percent Auto 8.1 % (2.6-8.5); Neutrophils Absolute Auto 3.2 K/mm3 (1.3-6.7); Neutrophils Percent Auto 59.3 % (45.5-73.1); Platelet Count Result 223 k/mm3 (150-375); Red Blood Count 4.74 M/mm3 (4.6-6.20); Red Cell Distribution Width 12.3 % (11.5-14.5); White Blood Count 5.4 K/mm3 (4.5-10.0)
[2023-09-03 23:46] LABS: Hemoglobin A1C 5.3 % (<5.7)
== END 2023-09-03 08:45 | disposition home or self-care (01) ==
LOC: ANHGOSHLAB 08:45
PROVIDERS: PCP Family Medicine; Visit Provider Physician Assistant
DX: E78.5 Hyperlipidemia, unspecified (principal); R73.01 Impaired fasting glucose; F41.1 Generalized anxiety disorder; E66.9 Obesity, unspecified; Z79.899 Other long term (current) drug therapy
CPT/HCPCS: 36415; 80053; 80061; 83036; 84443; 85025

== ENCOUNTER 2023-11-14 00:51 | Day surgery (SDC) | payer BC, SELFPAY ==
[2023-10-17 10:36] VITALS: BMI 36.6
--- NOTE | 2023-11-12 13:05 | SUR.PREOP ---
Patient called regarding upcoming procedure. Pt updated on arrival date and time. All questions answered.
[2023-11-14 06:20] VITALS: BP 138/88; PULSE 67; RESP 20; TEMP 36; O2SAT 97
[2023-11-14] MEDS: LACTATED RINGERS 1,000 ML 150 ML IV CONT (06:31)
--- NOTE | 2023-11-14 07:28 | WPDANESEPPF ---
Anes - Initial Pre Proc Eval Procedure: Operation Date: 11/14/23 07:30 Proposed Procedures p Colonoscopy - Willian Stewart MD Date/Time: 11/14/23 07:28 Surgeon: Willian Stewart MD Pre Op Diagnosis: Hemorrhage of anus and rectum Patient Data Age: 47 Gender: M Height: 1.85 m Weight: 122.8 kg Last Vital Signs Temp 96.8 F L 11/14/23 06:20 Pulse 67 11/14/23 06:20 Resp 20 11/14/23 06:20 BP 138/88 11/14/23 06:20 Pulse Ox 97 11/14/23 06:20 O2 Del Method Room Air 11/14/23 06:20 Allergies Allergy/AdvReac Type Severity Reaction Status Date / Time No Known Allergies Allergy Verified 11/14/23 06:19 Home Medications Medication Instructions Recorded Confirmed Type paroxetine HCl 40 mg tablet See Rx Instructions .Route 07/04/23 10/17/23 Rx .COMPLEX #90 tabs cyclobenzaprine 10 mg tablet 10 mg PO TID PRN muscle spasm #60 09/27/23 10/17/23 Rx tabs Patient hx anesthesia problems: none Family hx anesthesia problems: none Results Review: All pre-operative results and documents have been reviewed as part of the pre-operative evaluation. FOR[facility]LY [facility] Past Medical History Medical History Anxiety Current smoker Obstructive apnea Surgical History Surgical History History of appendectomy History of back surgery No pertinent past surgical history Family History Family History Grandparent Family history of coronary artery disease Father Malignant neoplasm of prostate Patient's father is Social History Social History Social History: The patient stated that he used to smoke. The patient is and lives with his and has 1 child. 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 Patient does not use any alcohol marijuana or illicit drugs. 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 Smoking packs per day: 1 Smoking cigarettes per day: 20.0 Years smoked: 10 Smoking pack-years: 10.00 Smoking status: Former smoker Tobacco type: cigarettes Alcohol intake: never Substance use: never Substance use type: does not use Living arrangements: with family Gender identity (if verbalized by the patient): Male Spiritual care concerns: No Anes - Eval Final PreProcedure Day of Procedure 11/14/23 07:28 Patient weight: obese Heart: regular rate and rhythm Lungs: clear to auscultation Airway: Mallampati scale class II Neurological: alert and oriented Last oral intake: >/= 8 hours ASA classification: III Emergent: no Anesthetic plan: proceed Anesthesia type and monitoring: general GIVS and standard monitoring Results Review: All pre-operative results and documents have been reviewed as part of the pre-operative evaluation. Informed Consent: The patient's anesthetic plan and its attendant risks and benefits were discussed with the patient/family/POA. Questions were solicited and answers provided to the satisfaction of the patient/family/POA.
--- NOTE | 2023-11-14 07:32 | PM.HPGS ---
History of Present Illness History of Present Illness Consent: Risks, benefits, and alternatives have been discussed and questions answered. Patient agrees to proceed with procedure. Chief complaint: Hemorrhage of anus and rectum Narrative: Daniele Warren is a 47 year old male here for first screening colonoscopy Review of Systems Constitutional: Constitutional: Denies headache(s) and Denies weakness Eyes: Eyes: Denies blurry vision ENT: Reports Normal hearing present, Denies headache(s) and Denies neck pain Cardiovascular: Cardiovascular: Denies chest pain and Denies dyspnea Respiratory: Respiratory: Denies dyspnea Gastrointestinal: Gastrointestinal: Reports no additional gastrointestinal complaints Genitourinary: Genitourinary: Denies dysuria Musculoskeletal: Musculoskeletal: Denies neck pain Integumentary/Breasts: Skin/Breast: Denies dry skin Neurologic: Reports Normal hearing present, Denies headache(s) and Denies weakness Psychiatric: Psychiatric: Denies anxiety Endocrine: Endocrine: Denies change in body appearance Hematologic/Lymphatic: Hematologic/Lymphatic: Denies easy bleeding Allergic/Immunologic: Allergic/Immunologic: Denies urticaria PMFSH Past Medical History Medical History Anxiety Current smoker Obstructive apnea Surgical History Surgical History History of appendectomy History of back surgery No pertinent past surgical history Family History Family History Grandparent Family history of coronary artery disease Father Malignant neoplasm of prostate Patient's father is Social History Social History Social History: The patient stated that he used to smoke. The patient is and lives with his and has 1 child. 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 Patient does not use any alcohol marijuana or illicit drugs. 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 Smoking packs per day: 1 Smoking cigarettes per day: 20.0 Years smoked: 10 Smoking pack-years: 10.00 Smoking status: Former smoker Tobacco type: cigarettes Alcohol intake: never Substance use: never Substance use type: does not use Living arrangements: with family Gender identity (if verbalized by the patient): Male Spiritual care concerns: No Meds Home Medications and Allergies Home Medications Medication Instructions Recorded Confirmed Type paroxetine HCl 40 mg tablet See Rx Instructions .Route 07/04/23 10/17/23 Rx .COMPLEX #90 tabs cyclobenzaprine 10 mg tablet 10 mg PO TID PRN muscle spasm #60 09/27/23 10/17/23 Rx tabs Allergies Allergy/AdvReac Type Severity Reaction Status Date / Time No Known Allergies Allergy Verified 11/14/23 06:19 Vital Signs Vital Signs - 24 hr 11/14/23 06:20 Temperature 96.8 F L Pulse Rate 67 Respiratory Rate 20 Blood Pressure 138/88 Pulse Oximetry 97 Oxygen Delivery Room Air Exam Const: General: comfortable and no acute distress HENMT: Face/Nose/Sinus: Normal nares present Eyes: General: appearance normal, both eyes and all related structures Neck: Neck: no JVD Resp: Auscultation: clear to auscultation bilaterally Cardio: Rate: regular rate Rhythm: regular rhythm GI: Inspection: non-distended GI Palp: Yes Soft to palpation Skin: General skin exam: normal color Neuro: General: gait normal Speech: normal speech Extrem: General: normal to inspection Psych: Mental Status: mental status grossly normal Assessment and Plan Assessment and plan (1) Screening for colon cancer: Code(s): Z12.11 - Encounter for screening for malignant neoplasm of colon Status: Acute Assessment and Plan: colonoscopy
[2023-11-14 07:52] VITALS: BP 112/72; PULSE 66; RESP 20; O2SAT 97
[2023-11-14 08:02] VITALS: BP 108/69; PULSE 62; RESP 18; O2SAT 99
[2023-11-14 08:12] VITALS: BP 124/84; PULSE 64; RESP 18; O2SAT 99
== END 2023-11-14 08:18 | disposition home or self-care (01) ==
PROVIDERS: PCP Family Medicine; Visit Provider Internal Medicine Gastroenterology
PROC: 0DJD8ZZ Inspection of Lower Intestinal Tract, Via Natural or Artificial Opening Endoscopic (ICD-10-PCS; CPT 45378; principal; 2023-11-14 07:30)
DX: Z12.11 Encounter for screening for malignant neoplasm of colon (principal); D12.3 Benign neoplasm of transverse colon; G47.33 Obstructive sleep apnea (adult) (pediatric); F41.9 Anxiety disorder, unspecified; Z87.891 Personal history of nicotine dependence; E66.9 Obesity, unspecified; Z68.35 Body mass index [BMI] 35.0-35.9, adult
CPT/HCPCS: 45385; 88305; J2704; J7120

== ENCOUNTER 2024-08-14 13:29 | Outpatient (CLI) | payer BC, SELFPAY ==
[2024-08-14 18:36] LABS: Basophils Percent Auto 0.4 % (0.2-1.2); Eosinophils Absolute Auto 0.1 K/mm3 (0-0.3); Eosinophils Percent Auto 1.6 % (0-4.4); Hematocrit 40.6 % (42.0-52.0); Hemoglobin 13.8 g/dL (14.0-18.0); Immature Granulocyte Absolute 0.01 K/mm3 (0.00-0.031); Immature Granulocyte Percent A 0.1 % (0-0.5); Lymphocytes Absolute Auto 2.19 K/mm3 (0.9-3.2); Lymphocytes Percent Auto 32.8 % (18.3-44.2); Mean Corpuscular Hemoglobin 30.1 pg (26-34); Mean Corpuscular Volume 88.6 fl (80-100); Mean Platelet Volume 9.5 fl (7.4-10.4); Monocytes Absolute Auto 0.6 K/mm3 (0.1-0.6); Monocytes Percent Auto 8.2 % (2.6-8.5); Neutrophils Absolute Auto 3.8 K/mm3 (1.3-6.7); Neutrophils Percent Auto 56.9 % (45.5-73.1); Platelet Count Result 245 k/mm3 (150-375); Red Blood Count 4.58 M/mm3 (4.6-6.20); Red Cell Distribution Width 12.5 % (11.5-14.5); White Blood Count 6.7 K/mm3 (4.5-10.0)
[2024-08-14 18:49] LABS: Alanine Aminotransferase 47 U/L (6-50); Alkaline Phosphatase 103 U/L (38-126); Anion Gap 7 mmol/L (4-12); Aspartate Amino Transferase 38 U/L (17-59); Blood Urea Nitrogen 14 mg/dL (9-20); Calcium 8.8 mg/dL (8.4-10.2); Carbon Dioxide 28 mmol/L (22-30); Chloride 106 mmol/L (98-107); Cholesterol 179 mg/dL (0-200); Estimated Glomerular Filt Rate > 60; Glucose 92 mg/dL (65-110); HDL Direct 28 mg/dL; Potassium 4.3 mmol/L (3.4-5.0); Sodium 141 mmol/L (137-145); Triglycerides 102 mg/dL (<150)
[2024-08-14 19:01] LABS: LDL Cholesterol Direct 122 mg/dL
[2024-08-14 19:30] LABS: Vitamin D 25 Hydroxy 26.9 ng/mL
[2024-08-14 22:24] LABS: Hemoglobin A1C 5.7 % (<5.7)
== END 2024-08-14 13:30 | disposition home or self-care (01) ==
LOC: ANHGOSHLAB 13:30
PROVIDERS: PCP Family Medicine; Visit Provider Family Medicine
DX: E78.2 Mixed hyperlipidemia (principal); F41.9 Anxiety disorder, unspecified; R73.03 Prediabetes
CPT/HCPCS: 36415; 80053; 80061; 82306; 83036; 84443; 85025